=== PATIENT | female | born 1965 | race Caucasian/White ===

== ENCOUNTER → 2017-04-18 08:47 | Day surgery (SDC) | payer MEDICARE, MEDICAID ==
--- NOTE | 2017-03-17 15:53 | HP ---
PREOPERATIVE HISTORY AND PHYSICAL: DATE OF SURGERY/ADMISSION: 04/04/17 DATE OF OFFICE VISIT/ENCOUNTER: 03/05/17 ATTENDING SURGEON: Sena Nieto MD * (DICTATED BY DAVON SHAHID) PROCEDURE: Excision ganglion cyst, left wrist CHIEF COMPLAINT: Cyst left wrist. HISTORY OF PRESENT ILLNESS: This is a 51-year-old female, who complains of a lump on the volar radial aspect of her left wrist. It has been present for a few years. She had it look at in the past and had an MRI, which showed a ganglion cyst on the volar radial aspect of the wrist. She says that in the last few weeks, it has because increasingly bothersome and she would like have it removed. She does not recall any specific injury. She denies any numbness or tingling associated with it. PAST MEDICAL HISTORY: 1. Hypocholesterolemia. 2. Asthma. 3. GERD. PAST SURGICAL HISTORY: Tubal ligation. MEDICATIONS: 1. Advair Diskus 100/50 mcg 1 inhalation twice daily. 2. Atorvastatin calcium 40 mg daily. 3. Estradiol 1 mg daily. 4. Ibuprofen 200 mg p.r.n. 5. Medroxyprogesterone acetate 2.5 mg daily. 6. Omeprazole 20 mg daily. 7. ProAir HFA 108 (90 base) mcg/actuation 2 puffs q. 4 hours p.r.n. wheeze and chest tightness. 8. Soma 250 mg 1 tab 3 times a day and at bedtime as needed. ALLERGIES: No known drug allergies. FAMILY MEDICAL HISTORY: Diabetes, pulmonary embolism, emphysema, and cancer. SOCIAL HISTORY: The patient is disabled secondary to back pain. She is a current smoker, she smokes half a pack a day and has done so since age 14. Denies recreational drug use and does not drink alcohol. REVIEW OF SYSTEMS: General: Positive for night sweats. Negative for fevers or chills. No known anesthesia problems in the past. HEENT: Negative for headache, lightheadedness, or syncopal episodes. Integumentary: Negative for abrasions, lesions, or open wounds. Cardiothoracic: Negative for hypertension , chest pain, palpitations, or edema. Pulmonary: Positive for shortness of breath with exertion secondary to asthma. Negative for chronic cough or COPD. GI: Positive for GERD. Negative for nausea, vomiting, diarrhea, or constipation. : Negative for nocturia, urinary frequency, urgency, history of UTIs, or kidney problems. Musculoskeletal: Positive for current complaint. Positive for chronic back pain. Neurologic: Negative for paresthesias, numbness , history of seizures, stroke, or epilepsy. Endocrine: Negative for diabetes or thyroid issues. Hematologic: Negative for easy bruising, anemia, excessive bleeding, or history of DVT. Infectious Disease: Negative for history of MRSA, hepatitis C, or HIV. PHYSICAL EXAMINATION GENERAL: Well developed, well nourished 51-year-old female, in no acute distress. VITAL SIGNS: Height 5 feet tall, weight 150 pounds. Blood pressure 114/78, pulse rate 60. HEENT: Normocephalic, atraumatic. Pupils are equal, round, and reactive to light and accommodation. Extraocular movements are intact. NECK: Supple. No palpable lymph nodes. Throat is clear. PULMONARY: Lungs are clear to auscultation bilaterally. No wheezes, rales, or rhonchi. ABDOMEN: Positive bowel sounds, soft, nontender. NEUROLOGIC: Alert and oriented x3. Cranial nerves II through XII are intact. Sensation is intact to light touch. MUSCULOSKELETAL: On exam of the left wrist, she has a cystic mass, which is very tender to palpation, located on the volar radial aspect of the wrist. She has good range of motion of her wrist, but has pain with extension. She can make a full fist. Neurovascular function is intact. IMAGING STUDIES: X-rays of the left wrist are within normal limits. MRI of the left wrist in 2013 shows a multilocular ganglion cyst present along the radial volar aspect of the wrist. IMPRESSION: Ganglion cyst, left wrist. PLAN: The patient is scheduled to undergo an excision of ganglion cyst left wrist with Dr. Nieto on 04/04/17. A prescription for tramadol was prescribed to the patient's pharmacy for postoperative pain management and she will return to the office in 10 to 14 days postop for followup and suture removal. DAVON SHAHID [id number]/[facility] #: [id number] PIERRE
--- NOTE | 2017-04-10 01:25 | HP ---
PREOPERATIVE HISTORY AND PHYSICAL: DATE OF ADMISSION/SURGERY: 04/18/17 [facility] DATE OF OFFICE VISIT/ENCOUNTER: 04/09/17 ATTENDING SURGEON: Sena Nieto MD * (DICTATED BY DAVON SHAHID) PROCEDURE: Left wrist ganglion cyst excision. CHIEF COMPLAINT: Cyst, left wrist. HISTORY OF PRESENT ILLNESS: This is a 51-year-old female who complains of lump on the volar radial aspect of her left wrist. It has been present for few years. She had it looked at in the past and had an MRI, which showed a ganglion cyst on the volar radial aspect of the wrist. She states that in the past couple of months, it has become increasingly bothersome and she would like to have it removed. She does not recall any specific injury. She denies any numbness or tingling associated with it. PAST MEDICAL HISTORY: 1. Hypercholesterolemia. 2. Asthma. 3. GERD. PAST SURGICAL HISTORY: Tubal ligation. MEDICATIONS: 1. Advair Diskus 100/50 mcg 1 inhalation twice daily. 2. Atorvastatin calcium 40 mg daily. 3. Estradiol 1 mg daily. 4. Ibuprofen 200 mg p.r.n. 5. Medroxyprogesterone acetate 2.5 mg daily. 6. Omeprazole 20 mg daily. 7. ProAir HFA 108 (90 base) mcg/actuation 2 puffs q.4 hours p.r.n. wheeze and chest tightness. 8. Soma 250 mg 1 tab 3 times a day at bedtime as needed. ALLERGIES: No known drug allergies. FAMILY MEDICAL HISTORY: Diabetes, pulmonary embolism, emphysema, and cancer. SOCIAL HISTORY: The patient is disabled secondary to back pain. She is a current smoker. She smokes approximately half a pack a day, although she is trying to cut back. She smoked since age 14. She denies recreational drug use and does not drink alcohol. REVIEW OF SYSTEMS: General: Positive for night sweats associated with menopause. Negative for fevers or chills. No known anesthesia problems in the past. HEENT: Negative for headache, lightheadedness, or syncopal episodes. Integumentary: Negative for abrasions, lesions, or open wounds. Cardiothoracic : Negative for hypertension, chest pain, palpitations, or edema. Pulmonary: Positive for shortness of breath with exertion secondary to asthma. Negative for chronic cough or COPD. GI: Positive for GERD. Negative for nausea, vomiting, diarrhea, or constipation. : Negative for nocturia, urinary frequency, urgency, history of UTIs, or kidney problems. Musculoskeletal: Positive for current complaint, positive for chronic back pain. Neurologic: Negative for paresthesias, numbness, history of seizures, stroke, or epilepsy. Endocrine: Negative for diabetes or thyroid issues. Hematologic: Negative for easy bruising, anemia, excessive bleeding, or history of DVT. Infectious Disease: Negative for history of MRSA, hepatitis C, or HIV. PHYSICAL EXAMINATION GENERAL: Well-developed, well-nourished, 51-year-old female, in no acute distress. VITAL SIGNS: Height 5 feet tall, weight 150 pounds. Pulse rate 64, blood pressure 119/80. HEENT: Normocephalic, atraumatic. Pupils are equal, round, and reactive to light and accommodation. Extraocular movements are intact. NECK: Supple. No palpable lymph nodes. Throat is clear. PULMONARY: Lungs are clear to auscultation bilaterally. No wheezes, rales, or rhonchi. ABDOMEN: Positive bowel sounds, soft, nontender. NEUROLOGIC: Alert and oriented x3. Cranial nerves II through XII are intact. Sensation is intact to light touch. MUSCULOSKELETAL: On exam of the left wrist, there is a cystic mass, which is tender to palpation, located on the volar radial aspect of the wrist. She has good range of motion of her wrist, but increased pain with extension. She can make a full fist. Neurovascular function is intact. IMAGING STUDIES: X-rays of the left wrist are within normal limits. MRI of the left wrist in 2013 shows a multilocular ganglion cyst present along the radial volar aspect of the wrist. IMPRESSION: Ganglion cyst, left wrist. PLAN: The patient is scheduled to undergo left wrist ganglion cyst excision with Dr. Nieto on 04/18/17. A prescription for tramadol was e-prescribed to the patient's pharmacy for postoperative pain management and she will return to the office 10 to 14 days postop for followup and suture removal. DAVON SHAHID [id number]/[facility] #: [id number] PIERRE
[~2017-04-18 08:47] MED LIST: Buffered Lidocaine 0.9% SYRIN* 5 ML/SYR SYRINGE INTRADERM ONE; Lidocaine 1% INJ* 10 MG/ML 30 ML SDV ONE; Lidocaine 2% PF * 5 ML VIAL ONE; Midazolam* 1 MG/ML 2 ML VIAL (2 MG) ONE; Propofol* 10 MG/ML 20 ML BTL IV PUSH ONE; fentaNYL* 50 MCG/ML 2 ML VIAL (100 MCG VIAL) ONE
[2017-04-18 10:46] VITALS: BP 136/68
--- NOTE | 2017-04-18 23:50 | OP ---
CC: Dr. Nieto OPERATIVE REPORT: DATE OF OPERATION: 04/18/17 DATE OF : 61 SURGEON: Sena Nieto MD FARM BOSS: DAVON Cross ANESTHESIA: Local MAC. PRE-OP DIAGNOSIS: Left wrist ganglion cyst. POST-OP DIAGNOSES: Left wrist ganglion cyst. OPERATIVE PROCEDURE: Remove left wrist ganglion cyst. ESTIMATED BLOOD LOSS: Zero. TOURNIQUET TIME: About 10 minutes. INDICATIONS: Emily is a 51-year-old female with a painful lump on the volar radial aspect of her lef t wrist. She presents for removal. DESCRIPTION OF PROCEDURE: The patient was brought to the operating room, was given a sedation anest hetic and a local infiltration of 10 cc of 1% plain lidocaine overlying the left wrist mass. The ski n of the left hand and forearm was prepped and draped in the usual sterile fashion. The hand and for earm were exsanguinated and the tourniquet elevated to 250 mmHg. A Chevron incision was made over th e mass. We dissected bluntly through the subcutaneous tissue. The radial artery was located and ret racted by the medical or surgical instrument maker, Cheyanne Dos Santos. There was a multiloculated ganglion cyst. This w as removed in its entirety and traced with its stalk down to the radiocarpal joint. It was removed with a small portion of the radiocarpal joint and the edges of the capsule were cauterized with the Bovie. The wound was irrigated and skin edges reapproximated with 4-0 nylon suture. The wound was dressed with Xeroform, 4x4, Webril, and an Jorge wrap. The patient tolerated the procedure well and w as brought to the recovery room in good condition. [id number]/[facility] #: [id number]
== END | disposition home or self-care (01) ==
LOC: OREAST 08:47
PROVIDERS: ATTEND Orthopaedic Surgery
DX: M67.432 Ganglion, left wrist (principal); F17.210 Nicotine dependence, cigarettes, uncomplicated; J45.909 Unspecified asthma, uncomplicated; E78.00 Pure hypercholesterolemia, unspecified
CPT/HCPCS: 88304; J2001; J2250; J2704; J3010

== ENCOUNTER 2019-09-28 16:11 | Emergency (ER) | payer MEDICARE, MEDICAID ==
[2019-09-28 16:33] VITALS: BP 129/66
--- NOTE | 2019-09-28 18:38 | UC ---
Hand/Wrist HPI - HPI Summary HPI Summary: 54-year-old female presenting with pain at the base of right thumb 1.5 weeks. Patient states that when she bends the thumb it "gets stuck" and she has to "straighten it out again using her other hand." States this is extremely painful. Denies obvious swelling or bruising. Denies redness or warmth around the area. Denies fever and chills. Denies numbness or tingling. Denies wrist pain. Denies symptoms in other fingers. Denies anything like this in the past. Has been icing and taking ibuprofen - History Of Current Complaint Chief Complaint: UCUpperExtremity Stated Complaint: THUMB PAIN Hx Obtained From: Patient Pain Intensity: 10 Pain Scale Used: 0-10 Numeric - Allergies/Home Medications Allergies/Adverse Reactions: Allergies Allergy/AdvReac Type Severity Reaction Status Date / Time No Known Allergies Allergy Verified 09/28/19 16:33 Home Medications: Home Medications Proair Hfa 2 puff PO Q4H PRN 07/25/14 [History Confirmed 09/28/19] Lansoprazole [Prevacid] 30 mg PO DAILY 06/24/18 [History Confirmed 09/28/19] Atorvastatin* [Lipitor*] 40 mg PO 1700 07/29/18 [History Confirmed 09/28/19] PMH/Surg Hx/FS Hx/Imm Hx - Surgical History Surgical History: Yes Surgery Procedure, Year, and Place: 1985 TUBES TIED [facility] [place]. 2004 [facility] ON [facility] [place]. YOUNG CHILD LACERATION OF FACE PAULETTE OFFICE - Social History Alcohol Use: None Substance Use Type: None Smoking Status (MU): Light Every Day Tobacco Smoker Type: Cigarettes Amount Used/How Often: 5 CIGS/DAY, WAS 1PPD+ . HAS BEEN SMOKING 37 YRS Length of Time of Smoking/Using Tobacco: 20+ years Have You Smoked in the Last Year: Yes Household Exposure Type: Cigarettes Review of Systems All Other Systems Reviewed And Are Negative: No Constitutional: Positive: Negative Skin: Positive: Negative Respiratory: Positive: Negative Cardiovascular: Positive: Negative Gastrointestinal: Positive: Negative Musculoskeletal: Positive: Arthralgia - base of right thumb pain, Other: - "right thumb getting stuck when bending". Negative: Edema Neurological/Mental Status: Positive: Negative Physical Exam Triage Information Reviewed: Yes Appearance: Well-Appearing, No Pain Distress, Well-Nourished Vital Signs: Initial Vital Signs Temp 96.9 F 09/28/19 16:28 Pulse 73 09/28/19 16:28 Resp 14 09/28/19 16:28 BP 129/66 09/28/19 16:28 Pulse Ox 96 09/28/19 16:28 Vital Signs Reviewed: Yes Eyes: Positive: Conjunctiva Clear ENT: Positive: Hearing grossly normal Neck: Positive: Supple Respiratory: Positive: No respiratory distress, No accessory muscle use Cardiovascular: Positive: Pulses Normal - strong radial pulses b/l, Brisk Capillary Refill - <2 sec Musculoskeletal: Positive: No Edema, ROM Limited @ - right thumb flexion due to pain, thumb got stuck in flexion and had to be forced into extension, Other: - + TTP of palmar aspect of base of right thumb Neurological Exam: Other - sensation grossly intact Neurological: Positive: Alert Psychological: Positive: Age Appropriate Behavior Skin Exam: Normal - no erythema or ecchymosis Diagnostics - Radiology right thumb Radiology Interpretation Completed By: Radiologist Summary of Radiographic Findings: IMPRESSION: No acute fracture or dislocation. If the patient's symptoms persist, follow-up imaging is recommended. Hand/Wrist Course/Dx - Course Course Of Treatment: Discussed trigger thumb with patient. I provided patient with a thumb spica splint and instructed to continue use of that along with rest, ice, and NSAIDs. Instructed to follow-up with orthopedics as soon as possible for further evaluation. Patient voiced understanding and agreed with the treatment plan. - Differential Dx/Diagnosis Differential Diagnosis/HQI/PQRI: Tendonitis, Tenosynovitis Provider Diagnosis: Trigger thumb of right hand Discharge ED - Sign-Out/Discharge Documenting (check all that apply): Patient Departure All imaging exams completed and their final reports reviewed: Yes - Discharge Plan Condition: Stable Disposition: HOME Patient Education Materials: Trigger Finger (ED) Referrals: Siri Ledesma MD [Medical Doctor] - 1 Week Additional Instructions: As discussed, you likely have trigger thumb. Your radiographs were normal today. Rest, ice, elevate, and use the splint to help relieve pain. You may also continue with ibuprofen as directed for pain relief. Follow up with orthopedics listed below within the next week for further evaluation and treatment. - Billing Disposition and Condition Condition: STABLE Disposition: Home
== END 2019-09-28 18:26 | disposition home or self-care (01) ==
LOC: UCEAST 16:11
DX: M65.311 Trigger thumb, right thumb (principal); F17.210 Nicotine dependence, cigarettes, uncomplicated
CPT/HCPCS: 99212; G0463